=== PATIENT | male | born 1955 | race Caucasian/White ===

== ENCOUNTER 2016-09-24 07:32 | Emergency (ER) | payer OTHER ==
--- NOTE | 2016-09-24 09:22 | DIAGNOSTIC IMAGING REPORT ---
PROCEDURE: CT ABD/PELVIS WITH CONTRAST CLINICAL INDICATION: ABDOMINAL PAIN TECHNIQUE: 145 ml of Isovue 300 were injected intravenously and axial images were obtained of the entire abdomen and pelvis with sagittal and coronal reformations. COMPARISON: None. FINDINGS: ABDOMEN: Lung bases are clear. Normal heart size. Enlarged liver (20.7 cm) with diffuse steatosis. Gallbladder, pancreas, spleen and right adrenal gland are normal. 2.2 cm left adrenal mass. Bilateral renal cysts. Mild atherosclerosis. Nonspecific bowel gas pattern. PELVIS: Normal appendix. Moderate sigmoid diverticulosis with wall thickening and inflammatory change around the mid sigmoid and trace free fluid, consistent with a diverticulitis. No evidence of an abscess or free air. Enlarged prostate (5.2 cm). Normal bladder. Moderate degenerative changes. Bilateral L5 spondylolysis with grade 1 L4-5 retrolisthesis and L5-S1 anterolisthesis. IMPRESSION: 1. Sigmoid diverticulitis. No abscess. 2. Hepatomegaly and steatosis 3. 2.2 cm left adrenal mass. Recommend follow-up CT scan in 6 months 4. Bilateral L5 spondylolysis 5. Results discussed with Dr. Alexandra. All CT scans at this facility use dose modulation, iterative reconstruction, and/or weight-based dosing when appropriate to reduce radiation dose to as low as reasonably achievable.
--- NOTE | 2016-09-24 10:11 | DIAGNOSTIC IMAGING REPORT ---
PROCEDURE: XR CHEST 1 VIEW INDICATION: PALPITATIONS TECHNIQUE: Portable AP view 08:09 a.m. COMPARISON: None. FINDINGS: Lungs are clear. Heart and mediastinum are normal. Thorax is normal. IMPRESSION: 1. Negative chest.
--- NOTE | 2016-09-24 10:24 | ED NURSING NOTES ---
Clinical Report - Nurses [address] [place] [address] 09/24/2016 7:34 [id number] Triage time 0732. Acuity: LEVEL 3. Chief Complaint: CHEST PAIN and DISCOMFORT and (Chest discomfort and rapid HR onset at 0200 today, nausea, SOB.). SEPSIS SCREEN: Sepsis Screen. Negative (no infection suspected/documented). AZIZA COMA SCORE: [place] Coma Scale: 15- eyes open spontaneously (4); best verbal response- oriented x 4 (5); best motor response- obeys commands (6). --07:46 Samuel Leach R.N. 07:35 09/24/16. BP: 159/81 (regular adult cuff) taken on the left arm, while lying. HR: 117 (irregular). RR: 20. O2 saturation: 100%. Temp: 97.8 F (oral). Pain level now: 0/10. --07:46 Samuel Leach R.N. Weight: 90.7 kg stated. Height/Length: 73 inches Per Patient. BMI: 26.4. --07:45 Samuel Leach R.N. Medications Sildenafil Citrate Oral. --07:42 Samuel Leach R.N. Aspirin Oral. --09:03 Samuel Leach R.N. Atenolol Oral (Tablet 100 mg) 1 tablet, daily. --09:27 Samuel Leach R.N. Ibuprofen Oral (Tablet 800 mg) 1 tablet, 3x a day as needed. --09:27 Samuel Leach R.N. Meclizine HCl Oral (Tablet Chewable 25 mg) 1 tablet, 3x a day as needed. --09:27 Samuel Leach R.N. The following entry was struck by Samuel Leach R.N., 09:26 (09/24/16) Reason - other. <<STRICKEN ENTRY-- HTN med?. --07:43 Simbeck, Samuel, R.N. --END STRIKE>>. Allergies NKA. --07:42 Samuel Leach R.N. History Arrived by private vehicle. Historian: patient and family (speaks only austrian, son interpreting). Accompanied by family. Primary physician (Elenita). ( Pt reports drinking some energy drinks yesterday). SOCIAL HX: Former smoker, end date 1996 (cigarette). No alcohol use or drug use. ABUSE ASSESSMENT: No report of abuse. --07:46 Samuel Leach R.N. PROBLEMS: Contusion. Hypertension. --07:43 Samuel Leach R.N. Unknown Paralysis (2010). --09:04 Samuel Leach R.N. ADDITIONAL SURGERIES: Hernia Repair. --07:43 Samuel Leach R.N. Assessment GENERAL / NEURO / PSYCH: Alert. Oriented X 4. Appears anxious. RESPIRATORY: Respirations not labored. Chest nontender. Breath sounds within normal limits. CVS: Cardiac rhythm: atrial fibrillation. Capillary refill less than 2 seconds. GI / : Abdomen soft. Abdominal tenderness (now c/o 'bladder pain'). SKIN: Mucous membranes are pink. Skin is warm and dry. --07:48 Samuel Leach R.N. Interventions ID band on patient. To treatment room. --07:46 Samuel Leach R.N. PHYSICAL ASSESSMENT late entry -07:32. Ambulatory to room. GENERAL / NEURO / PSYCH: Alert. Oriented X 4. Appears anxious. HEENT: Mucous membranes are pink. RESPIRATORY: Respirations not labored. Chest nontender. Breath sounds within normal limits. CVS: Cardiac rhythm: atrial fibrillation. Pulses within normal limits. ( no edema). Pulses: (peripheral pulses match apical HR and irregularity). Capillary refill less than 2 seconds. GI / : Abdomen soft. ( 'bladder pain'). EXTREMITIES: No lower extremity edema. SKIN: Skin is warm and dry. Normal skin turgor. Skin is non-tender. --08:17 Samuel Leach R.N. NURSING PROGRESS NOTES EKG time: (740). EKG was ordered, performed by a tech and shown to the ED physician. --08:03 Luc Weiner, PATRICK Tech1 07:34 09/24/2016 Site #1 started via IV in the left forearm with an 20g angiocath; one attempt. Saline lock flushed with 10 mL saline (by Malathi, SUKUMAR). --08:04 Samuel Leach R.N. late entry -07:35. court monitor, pulse oximeter and NIBP monitor placed on patient; awake overnight monitor- Lead II and V1; monitor alarms on. Patient gowned. Head of bed elevated. Two patient identifiers checked. Call light placed in reach. Bed placed in lowest position. Brakes of bed on. Patient ready for evaluation- chart flagged. --08:18 Samuel Leach R.N. EKG time: (826). EKG was performed by a tech and shown to the ED physician. ( Second EKG performed per RN Verbal Order). --08:26 Luc Weiner, ER Tech1 late entry -08:08. Cardiac rhythm: normal sinus rhythm; (Pt's rhythm converted spontaneously). --08:28 Samuel Leach R.N. ( Nutrition Program Instructor line was used by the doctor to interview pt.). --08:28 Samuel Leach R.N. <<STRICKEN ENTRY-- 08:32 09/24/16. BP: 118/86. HR: 93. RR: 16. O2 saturation: 98% on room air. Temp: 98.2 F (oral). Pain level now: 0/10. --08:36 Samuel Leach R.N. --END STRIKE>> Charted on wrong patient. --08:37 Samuel Leach R.N. <<STRICKEN ENTRY-- Head of bed elevated. ( No c/o, visiting with a male visitor, calm, pleasant.). Call light placed in reach. Bed placed in lowest position. Brakes of bed on. --08:36 Samuel Leach R.N. --END STRIKE>> Charted On Wrong Patient --08:36 Samuel Leach R.N. 08:30 09/24/16. BP: 131/90. HR: 71 (regular). RR: 19. O2 saturation: 98% on room air. Laureano-Crowley pain scale: 4/10. --08:55 Samuel Leach R.N. 08:45 09/24/16. BP: 142/91. HR: 69 (regular). RR: 23. O2 saturation: 99% on room air. Laureano-Crowley pain scale: 08/09. --08:55 Samuel Leach R.N. Patient returned from CT by stretcher with tech. ([id number]). --09:03 Samuel Leach R.N. 09:00 09/24/16. BP: 148/93. HR: 65. RR: 19. O2 saturation: 99% on room air. Laureano-Crowley pain scale: 08/09. --09:38 Samuel Leach R.N. 09:15 09/24/16. BP: 143/90. HR: 65 (regular). RR: 18. O2 saturation: 99% on room air. Laureano-Crowley pain scale: 08/09. --09:39 Samuel Leach R.N. 09:30 09/24/16. BP: 141/89 (regular adult cuff) taken on the left arm, while sitting. HR: 64 (regular). RR: 19. O2 saturation: 99%. Laureano-Crowley pain scale: 08/09. --10:02 Samuel Leach R.N. Cardiac rhythm: normal sinus rhythm. court monitor, pulse oximeter and NIBP monitor placed on patient; awake overnight monitor- Lead II and V1; monitor alarms on. Head of bed elevated. Reassurance given. ( Pt resting quietly, no c/o, his son is at the bedside.). Call light placed in reach. Bed placed in lowest position. Brakes of bed on. --10:02 Samuel Leach R.N. 10:00 09/24/16. BP: 151/89. HR: 65 (regular). RR: 18. O2 saturation: 100% on room air. Laureano-Crowley pain scale: 08/09. --10:10 Samuel Leach R.N. 10:15 09/24/2016 Levofloxacin PO Capsules 500 mg given. Allergies verified and confirmed 5 rights. --10:21 Samuel Leach R.N. 10:20 09/24/2016 Started 500 mg of Flagyl (MetroNIDAZOLE in NaCl) IVPB in bag #1 100 mL; at 100 mL/hr over 1 hour(s) via site #1 via IV pump. Allergies verified and confirmed 5 rights. IV patency established. IV site checked: no pain, redness, or swelling. IV flushed thoroughly pre- and post-medication administration. --10:21 Samuel Leach R.N. 10:30 09/24/16. BP: 166/84. HR: 66. RR: 17. O2 saturation: 100% on room air. Laureano-Crowley pain scale: 10. --10:50 Samuel Leach R.N. 11:20 09/24/2016 Flagyl IVPB Discontinued: bag #1 completed. Total amount infused: 100 mL. IV patency established. IV site checked: no pain, redness, or swelling. IV flushed thoroughly. --11:22 Samuel Leach R.N. DISPOSITION / DISCHARGE 11:20 09/24/2016 Site #1 removed upon discharge. Bandage applied. --11:27 Samuel Leach R.N. Departure time: 1125. Condition at departure: improved and stable. Ability to learn limited by language barrier; teaching performed via svp chief marketing officer service and family member interpreting. Discharge instructions provided and reviewed with the patient and family. Reviewed medication(s). Reviewed referrals. Family verbalized understanding. Written instructions provided in Latvian. The patient was discharged by the physician. He was discharged home and accompanied by manager highway. He left the Emergency Department ambulatory and via private vehicle. --11:28 Samuel Leach R.N. 11:15 09/24/16. BP: 161/93. HR: 67. RR: 18. O2 saturation: 100% on room air. Temp: 97.9 F. Laureano-Crowley pain scale: 08/09. --11:28 Samuel Leach R.N. Locked/Released at 09/24/2016 14:47 by Samuel Leach R.N.
--- NOTE | 2016-09-24 10:24 | ED CLINICAL REPORT ---
Clinical Report - Physicians/Mid Levels [facility] [address] [place] [address] 09/24/2016 7:34 Patient: JUAN PRECIADO Time Seen: 08:03. Arrived- By private vehicle. Historian- patient, using an shuttlecock feather trimmer via language phone. HISTORY OF PRESENT ILLNESS Chief Complaint: PALPITATIONS and CHEST DISCOMFORT. It is described as a fast heart beat. He complains of dizziness and weakness. This started about 2 days ago and is still present. No history of caffeine use prior to onset, decongestants use prior to onset, cocaine use prior to onset or amphetamine use prior to onset. It was gradual in onset and has been waxing/waning. The patient has had moderate, dull central chest pain (since 2 days ago), currently gone, described as radiating to the back. He has had difficulty breathing and dizziness. No fainting episodes. ( he did drink a MicroTransponder energy drink yesterday). Similar symptoms previously: None. Recent medical care: Not recently seen/assessed. REVIEW OF SYSTEMS No calf pain, pedal edema, vomiting or hematuria. He has had moderate abdominal pain (radiating to the groin). The pain is described as located in the right lower quadrant and suprapubic region. He has had constipation and nausea. All systems otherwise negative, except as recorded above. PAST HISTORY PCP = Zoran Contusion. Hypertension. Unknown Paralysis (2010). SURGERIES: Hernia Repair. Medications: Meclizine HCl Oral (Tablet Chewable 25 mg) 1 tablet, 3x a day as needed. Ibuprofen Oral (Tablet 800 mg) 1 tablet, 3x a day as needed. Atenolol Oral (Tablet 100 mg) 1 tablet, daily. Aspirin Oral. Sildenafil Citrate Oral. Allergies: NKA. SOCIAL HISTORY Smoker- current status unknown. No alcohol use or drug use. FAMILY HISTORY Premature onset heart disease with early in first-degree relative (father). ADDITIONAL NOTES The nursing notes have been reviewed. PHYSICAL EXAM Vital Signs: 09/24/2016 07:35 BP: 159/81. HR: 117. RR: 20. O2 saturation: 100%. Temp: 97.8 F. Pain level now: 0/10. Have been reviewed. Appearance: Alert. Eyes: Pupils equal, round and reactive to light. ENT: Pharynx normal. Neck: Normal inspection. Neck supple. No JVD. CVS: Tachycardia. Abnormal rhythm, which is irregularly irregular. Respiratory: No respiratory distress. Breath sounds normal. Abdomen: Soft and nontender. Bowel sounds normal. No organomegaly. No mass. Back: Normal external inspection. Skin: Skin warm and dry. Normal skin color. Normal skin turgor. Extremities: Extremities exhibit normal ROM. No calf tenderness. No lower extremity edema. LABS, X-RAYS, AND EKG EKG: EKG time: (7:41 AM). Rate: 103. Atrial fibrillation. Q waves in lead aVL, V1 and V2. Prior EKG unavailable. The study has been independently viewed by me. EKG #2: EKG time: (8:27 AM). Normal sinus rhythm. Rate: 68. Q waves in lead aVL, V1 and V2. Changes present when compared to prior EKG. The study has been independently viewed by me. Chest X-ray: No acute disease. The X-rays were independently viewed by me. Abdominal CT: 1. Sigmoid diverticulitis. No abscess. 2. Hepatomegaly and steatosis 3. 2.2 cm left adrenal mass. Recommend follow-up CT scan in 6 months 4. Bilateral L5 spondylolysis. Study type: abdomen and pelvis. Abdominal CT performed with IV contrast. The study was independently viewed by me, interpreted by the radiologist and discussed with the radiologist. Prior studies were not available for comparison. Interpretation time: 09:45. Laboratory Tests: UA-Culture if indicated: (AGUSTINA: 09/24/2016 08:45) ( MsgRcvd 09/24/2016 09:03) IP Test Result Flag Units (Reference) URINE COLOR YELLOW URINE APPEARANCE CLEAR URINE GLUCOSE 1+ (NEGATIVE) URINE BILIRUBIN NEGATIVE (NEGATIVE) URINE KETONE NEGATIVE (NEGATIVE) URINE SPECIFIC GRAVITY >= 1.030 (1.010-1.030) URINE PH 6.0 (5.0-8.0) URINE PROTEIN NEGATIVE (NEGATIVE) URINE UROBILINOGEN 0.2 EU/dL (0.2-1.0) URINE NITRITE NEGATIVE (NEGATIVE) URINE BLOOD NEGATIVE (NEGATIVE) URINE LEUK ESTERASE NEGATIVE (NEGATIVE) CBC w Diff: (AGUSTINA: 09/24/2016 07:55) ( [facility] 09/24/2016 08:10) Final results Test Result Flag Units (Reference) WHITE BLOOD COUNT 12.5 H K/uL (4.5-11.5) RED BLOOD COUNT 4.41 L M/uL (4.50-5.90) HEMOGLOBIN 13.5 gm/dL (13.5-17.5) HEMATOCRIT 40.0 L % (41.0-53.0) MEAN CELL VOLUME 91 fL (80-100) MEAN CORPUSCULAR HGB 31 pg (26-34) MEAN CORPUSCULAR HGB CONC 34 g/dL (31-37) RED CELL DISTRIBUTION WIDTH 13.0 % (11.6-14.8) PLATELET COUNT 226 K/uL (150-400) NEUTROPHIL % 64.4 % (50-75) LYMPH % 21.5 L % (25-40) MONO % 12.1 % (3-14) EOSINOPHIL % 1.7 % (0-4) BASOPHIL % 0.3 % (0-2) [id number]: (AGUSTINA: 09/24/2016 07:55) ( [facility] 09/24/2016 08:29) Final results Test Result Flag Units (Reference) D-DIMER QUANTITATIVE 0.34 ug/mLFEU (0.27-0.52) The primary value of this quantitative assay relates toits negative predictive value (i.e. exclusion) of pulmonaryembolism/deep vein thrombosis/DIC.Elevated levels of d-dimer may also occur with:, age, cancer, inflammation, liver disease,post-op, infection, hematoma, coronary disease, peripheralarteriopathy, bleeding disorders and thrombolytic treatment.Results should be correlated with other clinical andradiological data.Testing Methodology: Latex Immunoassay PT with INR: (AGUSTINA: 09/24/2016 07:55) ( [facility] 09/24/2016 08:17) Final results Test Result Flag Units (Reference) INR 0.9 (0.8-1.2) Low Intensity Therapy: INR 1.5-2.0 PT range 18.5-23.1Mod.Intensity Therapy: INR 2.0-3.0 PT range 23.1-31.5High Intensity Therapy: INR 2.5-3.5 PT range 27.4-35.5High Intensity Therapy 2: INR 3.0-4.0 PT range 31.5-39.3 APTT 31 SECONDS (24-34) CMP: (AGUSTINA: 09/24/2016 07:55) ( MsgRcvd 09/24/2016 08:28) Final results Test Result Flag Units (Reference) GLUCOSE 206 H mg/dL (70-110) BUN 20 H mg/dL (7-18) CREATININE 0.8 mg/dL (0.6-1.3) Estimated GFR >60 mL/min Estimated GFR- >60 mL/min Note: Persistent reduction over 3 months in eGFR<60 mL/min/1.73 m2 defines CKD. Patients with eGFR values>=60 mL/min/1.73 m2 may also have CKD if evidence ofpersistent proteinuria. Additional information may be foundat www.kidney.org. SODIUM 140 mmol/L (136-145) POTASSIUM 3.4 L mmol/L (3.5-5.1) CHLORIDE 105 mmol/L (98-107) CARBON DIOXIDE 24 mmol/L (21-32) CALCIUM 8.4 L mg/dL (8.5-10.1) TOTAL PROTEIN 7.5 g/dL (6.4-8.2) ALBUMIN 3.3 g/dL (3.3-5.0) BILIRUBIN, TOTAL 0.5 mg/dL (0.0-1.0) ALKALINE PHOSPHATASE 85 U/L (46-116) AST (SGOT) 16 U/L (15-37) ALT (SGPT) 34 U/L (12-78) LIPASE 190 U/L (73-393) AMYLASE 37 U/L (25-115) CPK 244 U/L (24-260) TROPONIN I <0.05 L ng/mL (0.00-1.5) TROPONIN REFERENCE RANGE:<0.1 NEGATIVE0.1-1.5 INDETERMINANT>1.5 POSITIVE THYROID STIMULATING HORMONE 1.014 uIU/mL (0.30-3.74) . PROGRESS AND PROCEDURES Course of Care: 09:13 09/24/16. I reviewed the case with Dr. Alexandra at change of shift. We reviewed the patient's history and physical examination findings as well as the results of his EKG chest x-ray and labs. Dr. Alexandra will follow up on the results of his pending CT abdomen and pelvis and will arrange an appropriate disposition for the patient. - MW Case accepted from Dr. Gómez. H&P reviewed and confirmed by me personally. Discussed case with on-call health care provider, (call returned 10:05 Dr. Len Nur cardiology, [place] for outpt stress and echo. Also, low dose beta negin and anticoag due to CHADDS VASC2 score of 2.). Reviewed test results and need for additional work-up. Health care provider will see patient in office. Consult obtained. Patient/family counseled. Disposition: Discharged home in good condition. Condition: good. CLINICAL IMPRESSION ,paroxysmal atrial fibrillation. The patient has one or more high risk factors and/or two or more moderate risk factors for thromboembolism. The patient is prescribed warfarin or another FDA approved anticoagulant. Acute diverticulitis of the colon. No perforation, bleeding, abscess, peritonitis or obstruction. New onset type 2 diabetes with hyperglycemia. No coma. INSTRUCTIONS Prescription Medications: Metformin 500 mg: take 1 orally every 12 hours. Dispense thirty (30). No refills. Flagyl 500 mg: Take 1 tablet orally every 12 hours for 7 days. No refill. Substitution is permissible Levaquin 500 mg: take 1 tab orally every day for 6 days. No refills. Substitution is permissible. (start on 09/25/16) Xarelto 20 mg 1 PO q day Disp # 30 No refills. Follow-up: Follow up with your doctor in about three days. Call for an appointment. Follow up with doctor Dr. Nur at [facility] [phone] in about four days. Call for an appointment. Blood pressure screening was not performed during this visit because the patient has an active diagnosis of hypertension. (Electronically signed by Sal Alexandra Dr. 09/24/2016 14:09) Addenda for JUAN PRECIADO VisitID: [id number] Date: 09/24/2016 09/24/2016 12:14 [facility] pharmacy called, and stated that the Xarelto is not covered by insurance, [facility], Dr. Alexandra notified, and will review chart. (Electronically signed by Michelle Jenkins R.N. - 09/24/2016 12:14)
--- NOTE | 2016-09-24 10:24 | ED CLINICAL REPORT ---
Clinical Report - Physicians/Mid Levels [facility] [address] [place] [address] 09/24/2016 7:34 Patient: JUAN PRECIADO Time Seen: 08:03. Arrived- By private vehicle. Historian- patient, using an healthcare interpreter via language phone. HISTORY OF PRESENT ILLNESS Chief Complaint: PALPITATIONS and CHEST DISCOMFORT. It is described as a fast heart beat. He complains of dizziness and weakness. This started about 2 days ago and is still present. No history of caffeine use prior to onset, decongestants use prior to onset, cocaine use prior to onset or amphetamine use prior to onset. It was gradual in onset and has been waxing/waning. The patient has had moderate, dull central chest pain (since 2 days ago), currently gone, described as radiating to the back. He has had difficulty breathing and dizziness. No fainting episodes. ( he did drink a [employer] energy drink yesterday). Similar symptoms previously: None. Recent medical care: Not recently seen/assessed. REVIEW OF SYSTEMS No calf pain, pedal edema, vomiting or hematuria. He has had moderate abdominal pain (radiating to the groin). The pain is described as located in the right lower quadrant and suprapubic region. He has had constipation and nausea. All systems otherwise negative, except as recorded above. PAST HISTORY PCP = Zoran Contusion. Hypertension. Unknown Paralysis (2010). SURGERIES: Hernia Repair. Medications: Meclizine HCl Oral (Tablet Chewable 25 mg) 1 tablet, 3x a day as needed. Ibuprofen Oral (Tablet 800 mg) 1 tablet, 3x a day as needed. Atenolol Oral (Tablet 100 mg) 1 tablet, daily. Aspirin Oral. Sildenafil Citrate Oral. Allergies: NKA. SOCIAL HISTORY Smoker- current status unknown. No alcohol use or drug use. FAMILY HISTORY Premature onset heart disease with early in first-degree relative (father). ADDITIONAL NOTES The nursing notes have been reviewed. PHYSICAL EXAM Vital Signs: 09/24/2016 07:35 BP: 159/81. HR: 117. RR: 20. O2 saturation: 100%. Temp: 97.8 F. Pain level now: 0/10. Have been reviewed. Appearance: Alert. Eyes: Pupils equal, round and reactive to light. ENT: Pharynx normal. Neck: Normal inspection. Neck supple. No JVD. CVS: Tachycardia. Abnormal rhythm, which is irregularly irregular. Respiratory: No respiratory distress. Breath sounds normal. Abdomen: Soft and nontender. Bowel sounds normal. No organomegaly. No mass. Back: Normal external inspection. Skin: Skin warm and dry. Normal skin color. Normal skin turgor. Extremities: Extremities exhibit normal ROM. No calf tenderness. No lower extremity edema. LABS, X-RAYS, AND EKG EKG: EKG time: (7:41 AM). Rate: 103. Atrial fibrillation. Q waves in lead aVL, V1 and V2. Prior EKG unavailable. The study has been independently viewed by me. EKG #2: EKG time: (8:27 AM). Normal sinus rhythm. Rate: 68. Q waves in lead aVL, V1 and V2. Changes present when compared to prior EKG. The study has been independently viewed by me. Chest X-ray: No acute disease. The X-rays were independently viewed by me. Abdominal CT: 1. Sigmoid diverticulitis. No abscess. 2. Hepatomegaly and steatosis 3. 2.2 cm left adrenal mass. Recommend follow-up CT scan in 6 months 4. Bilateral L5 spondylolysis. Study type: abdomen and pelvis. Abdominal CT performed with IV contrast. The study was independently viewed by me, interpreted by the radiologist and discussed with the radiologist. Prior studies were not available for comparison. Interpretation time: 09:45. Laboratory Tests: UA-Culture if indicated: (AGUSTINA: 09/24/2016 08:45) ( MsgRcvd 09/24/2016 09:03) IP Test Result Flag Units (Reference) URINE COLOR YELLOW URINE APPEARANCE CLEAR URINE GLUCOSE 1+ (NEGATIVE) URINE BILIRUBIN NEGATIVE (NEGATIVE) URINE KETONE NEGATIVE (NEGATIVE) URINE SPECIFIC GRAVITY >= 1.030 (1.010-1.030) URINE PH 6.0 (5.0-8.0) URINE PROTEIN NEGATIVE (NEGATIVE) URINE UROBILINOGEN 0.2 EU/dL (0.2-1.0) URINE NITRITE NEGATIVE (NEGATIVE) URINE BLOOD NEGATIVE (NEGATIVE) URINE LEUK ESTERASE NEGATIVE (NEGATIVE) CBC w Diff: (AGUSTINA: 09/24/2016 07:55) ( [facility] 09/24/2016 08:10) Final results Test Result Flag Units (Reference) WHITE BLOOD COUNT 12.5 H K/uL (4.5-11.5) RED BLOOD COUNT 4.41 L M/uL (4.50-5.90) HEMOGLOBIN 13.5 gm/dL (13.5-17.5) HEMATOCRIT 40.0 L % (41.0-53.0) MEAN CELL VOLUME 91 fL (80-100) MEAN CORPUSCULAR HGB 31 pg (26-34) MEAN CORPUSCULAR HGB CONC 34 g/dL (31-37) RED CELL DISTRIBUTION WIDTH 13.0 % (11.6-14.8) PLATELET COUNT 226 K/uL (150-400) NEUTROPHIL % 64.4 % (50-75) LYMPH % 21.5 L % (25-40) MONO % 12.1 % (3-14) EOSINOPHIL % 1.7 % (0-4) BASOPHIL % 0.3 % (0-2) [id number]: (AGUSTINA: 09/24/2016 07:55) ( [facility] 09/24/2016 08:29) Final results Test Result Flag Units (Reference) D-DIMER QUANTITATIVE 0.34 ug/mLFEU (0.27-0.52) The primary value of this quantitative assay relates toits negative predictive value (i.e. exclusion) of pulmonaryembolism/deep vein thrombosis/DIC.Elevated levels of d-dimer may also occur with:, age, cancer, inflammation, liver disease,post-op, infection, hematoma, coronary disease, peripheralarteriopathy, bleeding disorders and thrombolytic treatment.Results should be correlated with other clinical andradiological data.Testing Methodology: Latex Immunoassay PT with INR: (AGUSTINA: 09/24/2016 07:55) ( [facility] 09/24/2016 08:17) Final results Test Result Flag Units (Reference) INR 0.9 (0.8-1.2) Low Intensity Therapy: INR 1.5-2.0 PT range 18.5-23.1Mod.Intensity Therapy: INR 2.0-3.0 PT range 23.1-31.5High Intensity Therapy: INR 2.5-3.5 PT range 27.4-35.5High Intensity Therapy 2: INR 3.0-4.0 PT range 31.5-39.3 APTT 31 SECONDS (24-34) CMP: (AGUSTINA: 09/24/2016 07:55) ( MsgRcvd 09/24/2016 08:28) Final results Test Result Flag Units (Reference) GLUCOSE 206 H mg/dL (70-110) BUN 20 H mg/dL (7-18) CREATININE 0.8 mg/dL (0.6-1.3) Estimated GFR >60 mL/min Estimated GFR- >60 mL/min Note: Persistent reduction over 3 months in eGFR<60 mL/min/1.73 m2 defines CKD. Patients with eGFR values>=60 mL/min/1.73 m2 may also have CKD if evidence ofpersistent proteinuria. Additional information may be foundat [email or web address].org. SODIUM 140 mmol/L (136-145) POTASSIUM 3.4 L mmol/L (3.5-5.1) CHLORIDE 105 mmol/L (98-107) CARBON DIOXIDE 24 mmol/L (21-32) CALCIUM 8.4 L mg/dL (8.5-10.1) TOTAL PROTEIN 7.5 g/dL (6.4-8.2) ALBUMIN 3.3 g/dL (3.3-5.0) BILIRUBIN, TOTAL 0.5 mg/dL (0.0-1.0) ALKALINE PHOSPHATASE 85 U/L (46-116) AST (SGOT) 16 U/L (15-37) ALT (SGPT) 34 U/L (12-78) LIPASE 190 U/L (73-393) AMYLASE 37 U/L (25-115) CPK 244 U/L (24-260) TROPONIN I <0.05 L ng/mL (0.00-1.5) TROPONIN REFERENCE RANGE:<0.1 NEGATIVE0.1-1.5 INDETERMINANT>1.5 POSITIVE THYROID STIMULATING HORMONE 1.014 uIU/mL (0.30-3.74) . PROGRESS AND PROCEDURES Course of Care: 09:13 09/24/16. I reviewed the case with Dr. Alexandra at change of shift. We reviewed the patient's history and physical examination findings as well as the results of his EKG chest x-ray and labs. Dr. Alexandra will follow up on the results of his pending CT abdomen and pelvis and will arrange an appropriate disposition for the patient. - MW Case accepted from Dr. Gómez. H&P reviewed and confirmed by me personally. Discussed case with on-call health care provider, (call returned 10:05 Dr. Len Nur cardiology, [place] for outpt stress and echo. Also, low dose beta negin and anticoag due to CHADDS VASC2 score of 2.). Reviewed test results and need for additional work-up. Health care provider will see patient in office. Consult obtained. Patient/family counseled. Disposition: Discharged home in good condition. Condition: good. CLINICAL IMPRESSION ,paroxysmal atrial fibrillation. The patient has one or more high risk factors and/or two or more moderate risk factors for thromboembolism. The patient is prescribed warfarin or another FDA approved anticoagulant. Acute diverticulitis of the colon. No perforation, bleeding, abscess, peritonitis or obstruction. New onset type 2 diabetes with hyperglycemia. No coma. INSTRUCTIONS Prescription Medications: Metformin 500 mg: take 1 orally every 12 hours. Dispense thirty (30). No refills. Flagyl 500 mg: Take 1 tablet orally every 12 hours for 7 days. No refill. Substitution is permissible Levaquin 500 mg: take 1 tab orally every day for 6 days. No refills. Substitution is permissible. (start on 09/25/16) Xarelto 20 mg 1 PO q day Disp # 30 No refills. Follow-up: Follow up with your doctor in about three days. Call for an appointment. Follow up with doctor Dr. Nur at [facility] [phone] in about four days. Call for an appointment. Blood pressure screening was not performed during this visit because the patient has an active diagnosis of hypertension. (Electronically signed by Sal Alexandra Dr. 09/24/2016 14:09) Addenda for JUAN PRECIADO VisitID: [id number] Date: 09/24/2016 09/24/2016 12:14 [facility] pharmacy called, and stated that the Xarelto is not covered by insurance, [facility], Dr. Alexandra notified, and will review chart. (Electronically signed by Michelle Jenkins R.N. - 09/24/2016 12:14)
--- NOTE | 2016-09-24 10:24 | ED NURSING NOTES ---
Clinical Report - Nurses [place] [address] [place] [address] 09/24/2016 7:34 [id number] Triage time 0732. Acuity: LEVEL 3. Chief Complaint: CHEST PAIN and DISCOMFORT and (Chest discomfort and rapid HR onset at 0200 today, nausea, SOB.). SEPSIS SCREEN: Sepsis Screen. Negative (no infection suspected/documented). AZIZA COMA SCORE: Melbeta Coma Scale: 15- eyes open spontaneously (4); best verbal response- oriented x 4 (5); best motor response- obeys commands (6). --07:46 Samuel Leach R.N. 07:35 09/24/16. BP: 159/81 (regular adult cuff) taken on the left arm, while lying. HR: 117 (irregular). RR: 20. O2 saturation: 100%. Temp: 97.8 F (oral). Pain level now: 0/10. --07:46 Samuel Leach R.N. Weight: 90.7 kg stated. Height/Length: 73 inches Per Patient. BMI: 26.4. --07:45 Samuel Leach R.N. Medications Sildenafil Citrate Oral. --07:42 Samuel Leach R.N. Aspirin Oral. --09:03 Samuel Leach R.N. Atenolol Oral (Tablet 100 mg) 1 tablet, daily. --09:27 Samuel Leach R.N. Ibuprofen Oral (Tablet 800 mg) 1 tablet, 3x a day as needed. --09:27 Samuel Leach R.N. Meclizine HCl Oral (Tablet Chewable 25 mg) 1 tablet, 3x a day as needed. --09:27 Samuel Leach R.N. The following entry was struck by Samuel Leach R.N., 09:26 (09/24/16) Reason - other. <<STRICKEN ENTRY-- HTN med?. --07:43 Simbeck, Samuel, R.N. --END STRIKE>>. Allergies NKA. --07:42 Samuel Leach R.N. History Arrived by private vehicle. Historian: patient and family (speaks only egyptian, son interpreting). Accompanied by family. Primary physician (Elenita). ( Pt reports drinking some energy drinks yesterday). SOCIAL HX: Former smoker, end date 1996 (cigarette). No alcohol use or drug use. ABUSE ASSESSMENT: No report of abuse. --07:46 Samuel Leach R.N. PROBLEMS: Contusion. Hypertension. --07:43 Samuel Leach R.N. Unknown Paralysis (2010). --09:04 Samuel Leach R.N. ADDITIONAL SURGERIES: Hernia Repair. --07:43 Samuel Leach R.N. Assessment GENERAL / NEURO / PSYCH: Alert. Oriented X 4. Appears anxious. RESPIRATORY: Respirations not labored. Chest nontender. Breath sounds within normal limits. CVS: Cardiac rhythm: atrial fibrillation. Capillary refill less than 2 seconds. GI / : Abdomen soft. Abdominal tenderness (now c/o 'bladder pain'). SKIN: Mucous membranes are pink. Skin is warm and dry. --07:48 Samuel Leach R.N. Interventions ID band on patient. To treatment room. --07:46 Samuel Leach R.N. PHYSICAL ASSESSMENT late entry -07:32. Ambulatory to room. GENERAL / NEURO / PSYCH: Alert. Oriented X 4. Appears anxious. HEENT: Mucous membranes are pink. RESPIRATORY: Respirations not labored. Chest nontender. Breath sounds within normal limits. CVS: Cardiac rhythm: atrial fibrillation. Pulses within normal limits. ( no edema). Pulses: (peripheral pulses match apical HR and irregularity). Capillary refill less than 2 seconds. GI / : Abdomen soft. ( 'bladder pain'). EXTREMITIES: No lower extremity edema. SKIN: Skin is warm and dry. Normal skin turgor. Skin is non-tender. --08:17 Samuel Leach R.N. NURSING PROGRESS NOTES EKG time: (740). EKG was ordered, performed by a tech and shown to the ED physician. --08:03 Luc Weiner, PATRICK Tech1 07:34 09/24/2016 Site #1 started via IV in the left forearm with an 20g angiocath; one attempt. Saline lock flushed with 10 mL saline (by Malathi, SUKUMAR). --08:04 Samuel Leach R.N. late entry -07:35. enterprise application analyst, pulse oximeter and NIBP monitor placed on patient; cardiac tech- Lead II and V1; monitor alarms on. Patient gowned. Head of bed elevated. Two patient identifiers checked. Call light placed in reach. Bed placed in lowest position. Brakes of bed on. Patient ready for evaluation- chart flagged. --08:18 Samuel Leach R.N. EKG time: (826). EKG was performed by a tech and shown to the ED physician. ( Second EKG performed per RN Verbal Order). --08:26 Luc Weiner, ER Tech1 late entry -08:08. Cardiac rhythm: normal sinus rhythm; (Pt's rhythm converted spontaneously). --08:28 Samuel Leach R.N. ( Solution Developer line was used by the doctor to interview pt.). --08:28 Samuel Leach R.N. <<STRICKEN ENTRY-- 08:32 09/24/16. BP: 118/86. HR: 93. RR: 16. O2 saturation: 98% on room air. Temp: 98.2 F (oral). Pain level now: 0/10. --08:36 Samuel Leach R.N. --END STRIKE>> Charted on wrong patient. --08:37 Samuel Leach R.N. <<STRICKEN ENTRY-- Head of bed elevated. ( No c/o, visiting with a male visitor, calm, pleasant.). Call light placed in reach. Bed placed in lowest position. Brakes of bed on. --08:36 Samule Leach R.N. --END STRIKE>> Charted On Wrong Patient --08:36 Samuel Leach R.N. 08:30 09/24/16. BP: 131/90. HR: 71 (regular). RR: 19. O2 saturation: 98% on room air. Laureano-Crowley pain scale: 4/10. --08:55 Samuel Leach R.N. 08:45 09/24/16. BP: 142/91. HR: 69 (regular). RR: 23. O2 saturation: 99% on room air. Laureano-Crowley pain scale: 08/09. --08:55 Samuel Leach R.N. Patient returned from CT by stretcher with tech. ([id number]). --09:03 Samuel Leach R.N. 09:00 09/24/16. BP: 148/93. HR: 65. RR: 19. O2 saturation: 99% on room air. Laureano-Crowley pain scale: 08/09. --09:38 Samuel Leach R.N. 09:15 09/24/16. BP: 143/90. HR: 65 (regular). RR: 18. O2 saturation: 99% on room air. Laureano-Crowley pain scale: 08/09. --09:39 Samuel Leach R.N. 09:30 09/24/16. BP: 141/89 (regular adult cuff) taken on the left arm, while sitting. HR: 64 (regular). RR: 19. O2 saturation: 99%. Laureano-Crowley pain scale: 08/09. --10:02 Samuel Leach R.N. Cardiac rhythm: normal sinus rhythm. enterprise application analyst, pulse oximeter and NIBP monitor placed on patient; cardiac tech- Lead II and V1; monitor alarms on. Head of bed elevated. Reassurance given. ( Pt resting quietly, no c/o, his son is at the bedside.). Call light placed in reach. Bed placed in lowest position. Brakes of bed on. --10:02 Samuel Leach R.N. 10:00 09/24/16. BP: 151/89. HR: 65 (regular). RR: 18. O2 saturation: 100% on room air. Laureano-Crowley pain scale: 08/09. --10:10 Samuel Leach R.N. 10:15 09/24/2016 Levofloxacin PO Capsules 500 mg given. Allergies verified and confirmed 5 rights. --10:21 Samuel Leach R.N. 10:20 09/24/2016 Started 500 mg of Flagyl (MetroNIDAZOLE in NaCl) IVPB in bag #1 100 mL; at 100 mL/hr over 1 hour(s) via site #1 via IV pump. Allergies verified and confirmed 5 rights. IV patency established. IV site checked: no pain, redness, or swelling. IV flushed thoroughly pre- and post-medication administration. --10:21 Samuel Leach R.N. 10:30 09/24/16. BP: 166/84. HR: 66. RR: 17. O2 saturation: 100% on room air. Laureano-Crowley pain scale: 10. --10:50 Samuel Leach R.N. 11:20 09/24/2016 Flagyl IVPB Discontinued: bag #1 completed. Total amount infused: 100 mL. IV patency established. IV site checked: no pain, redness, or swelling. IV flushed thoroughly. --11:22 Samuel Leach R.N. DISPOSITION / DISCHARGE 11:20 09/24/2016 Site #1 removed upon discharge. Bandage applied. --11:27 Samuel Leach R.N. Departure time: 1125. Condition at departure: improved and stable. Ability to learn limited by language barrier; teaching performed via it programmer analyst service and family member interpreting. Discharge instructions provided and reviewed with the patient and family. Reviewed medication(s). Reviewed referrals. Family verbalized understanding. Written instructions provided in French. The patient was discharged by the physician. He was discharged home and accompanied by varnishing unit tool setter. He left the Emergency Department ambulatory and via private vehicle. --11:28 Samuel Leach R.N. 11:15 09/24/16. BP: 161/93. HR: 67. RR: 18. O2 saturation: 100% on room air. Temp: 97.9 F. Laureano-Crowley pain scale: 08/09. --11:28 Samuel Leach R.N. Locked/Released at 09/24/2016 14:47 by Samuel Leach R.N.
--- NOTE | 2016-09-24 10:24 | ED ORDER SUMMARY ---
..... Patient: JUAN PRECIADO [facility] VisitID: [id number] [place] [address] 61y, M Registration Date/Time: 09/24/2016 ORDER SHEET Weight: 90.7 kg (stated) Allergies: NKA GENERAL ORDERS: Chest 1V Urgent (07:54 09/24/2016 Ami IVY) (Ack 7:59 PWeiler ER Tech1) (8:19 IJurca ER Tech1) Head Trimmer (Continuous) (07:54 09/24/2016 Ami IVY) (8:04 IJurca ER Tech1) CBC w Diff Urgent (07:56 09/24/2016 Ami IVY) (Ack 7:59 PWeiler ER Tech1) (Sent 8:04 IJurca ER Tech1) (8:04 JSimbeck R.N.) CMP Urgent (07:56 09/24/2016 Ami IVY) (Ack 7:59 PWeiler ER Tech1) (Sent 8:04 IJurca ER Tech1) (8:04 JSimbeck R.N.) UA-Culture if indicated Urgent (07:56 09/24/2016 Ami IVY) (Ack 7:59 PWeiler ER Tech1) (8:52 JSimbeck R.N.) Amylase Urgent (07:56 09/24/2016 Ami IVY) (Ack 7:59 PWeiler ER Tech1) (Sent 8:04 IJurca ER Tech1) (8:04 JSimbeck R.N.) Lipase Urgent (07:56 09/24/2016 Ami IVY) (Ack 7:59 PWeiler ER Tech1) (Sent 8:04 IJurca ER Tech1) (8:04 JSimbeck R.N.) PT with INR Urgent (07:56 09/24/2016 Ami IVY) (Ack 7:59 PWeiler ER Tech1) (Sent 8:04 IJurca ER Tech1) (8:04 JSimbeck R.N.) PTT Urgent (07:56 09/24/2016 Ami IVY) (Ack 7:59 PWeiler ER Tech1) (Sent 8:04 IJurca ER Tech1) (8:04 JSimbeck R.N.) CPK Urgent (07:56 09/24/2016 Ami IVY) (Ack 7:59 PWeiler ER Tech1) (Sent 8:04 IJurca ER Tech1) (8:04 JSimbeck R.N.) Troponin-I Urgent (07:56 09/24/2016 Ami IVY) (Ack 7:59 PWeiler ER Tech1) (Sent 8:04 IJurca ER Tech1) (8:04 JSimbeck R.N.) Oxygen (2 L/min) (NC) (07:56 09/24/2016 Ami IVY) (8:04 Satnam ER Tech1) Pulse oximeter (07:56 09/24/2016 Ami IVY) (8:04 GEOFFREYurca ER Tech1) EKG - ER Stat (07:56 09/24/2016 Ami IVY) (7:57 PWeimirian ER Tech1) TSH Urgent (07:56 09/24/2016 Ami IVY) (Ack 7:59 PWeimirian ER Tech1) (Sent 8:04 IJurca ER Tech1) (8:04 JSimbeck R.N.) D-Dimer Urgent (08:18 09/24/2016 Ami IVY) (Ack 8:19 SOPHIAeimirian ER Tech1) (8:52 JSimbeck R.N.) CT Abd/Pel w Cont (No) (See report) Urgent (08:43 09/24/2016 Ami IVY) (Ack 8:44 PWeimirian ER Tech1) (9:02 JSimbeck R.N.) MEDICATION ORDERS: Levofloxacin PO 500 mg (NOW) (10:09 09/24/2016 Teddy Carolina) (10:21 JSimbeck R.N.) IV FLUIDS: IV Saline Lock (07:56 09/24/2016 Ami IVY) (8:04 JSimbeck R.N.) Flagyl IV 500 mg/100mL (NOW) (10:10 09/24/2016 Teddy Carolina) (10:21 JSimbeck R.N.) ORDER SHEET NOTES: [Electronically signed by Sal Alexandra Dr. (14:09 09/24/2016)] [Electronically signed by Samuel Leach R.N. (14:47 09/24/2016)] [Electronically locked/signed by Samuel Leach R.N. (14:47 09/24/2016)]
--- NOTE | 2016-09-24 10:24 | ED ORDER SUMMARY ---
..... Patient: JUAN PRECIADO OrderSheet [facility] VisitID: [id number] [place] [address] 61y, M Registration Date/Time: 09/24/2016 ORDER SHEET Weight: 90.7 kg (stated) Allergies: NKA GENERAL ORDERS: Chest 1V Urgent (07:54 09/24/2016 Ami IVY) (Ack 7:59 PWeiler ER Tech1) (8:19 IJurca ER Tech1) Sas Architect (Continuous) (07:54 09/24/2016 Ami IVY) (8:04 IJurca ER Tech1) CBC w Diff Urgent (07:56 09/24/2016 Ami IVY) (Ack 7:59 PWeiler ER Tech1) (Sent 8:04 IJurca ER Tech1) (8:04 JSimbeck R.N.) CMP Urgent (07:56 09/24/2016 Ami IVY) (Ack 7:59 PWeiler ER Tech1) (Sent 8:04 IJurca ER Tech1) (8:04 JSimbeck R.N.) UA-Culture if indicated Urgent (07:56 09/24/2016 Ami IVY) (Ack 7:59 PWeiler ER Tech1) (8:52 JSimbeck R.N.) Amylase Urgent (07:56 09/24/2016 Ami IVY) (Ack 7:59 PWeiler ER Tech1) (Sent 8:04 IJurca ER Tech1) (8:04 JSimbeck R.N.) Lipase Urgent (07:56 09/24/2016 Ami IVY) (Ack 7:59 PWeiler ER Tech1) (Sent 8:04 IJurca ER Tech1) (8:04 JSimbeck R.N.) PT with INR Urgent (07:56 09/24/2016 Ami IVY) (Ack 7:59 PWeiler ER Tech1) (Sent 8:04 IJurca ER Tech1) (8:04 JSimbeck R.N.) PTT Urgent (07:56 09/24/2016 Ami IVY) (Ack 7:59 PWeiler ER Tech1) (Sent 8:04 IJurca ER Tech1) (8:04 JSimbeck R.N.) CPK Urgent (07:56 09/24/2016 Ami IVY) (Ack 7:59 PWeiler ER Tech1) (Sent 8:04 IJurca ER Tech1) (8:04 JSimbeck R.N.) Troponin-I Urgent (07:56 09/24/2016 Ami IVY) (Ack 7:59 PWeiler ER Tech1) (Sent 8:04 IJurca ER Tech1) (8:04 JSimbeck R.N.) Oxygen (2 L/min) (NC) (07:56 09/24/2016 Ami IVY) (8:04 Satnam ER Tech1) Pulse oximeter (07:56 09/24/2016 Ami IVY) (8:04 GEOFFREYurca ER Tech1) EKG - ER Stat (07:56 09/24/2016 Ami IVY) (7:57 PWeimirian ER Tech1) TSH Urgent (07:56 09/24/2016 Ami IVY) (Ack 7:59 PWeimirian ER Tech1) (Sent 8:04 IJurca ER Tech1) (8:04 JSimbeck R.N.) D-Dimer Urgent (08:18 09/24/2016 Ami IVY) (Ack 8:19 SOPHIAeimirian ER Tech1) (8:52 JSimbeck R.N.) CT Abd/Pel w Cont (No) (See report) Urgent (08:43 09/24/2016 Ami IVY) (Ack 8:44 PWeimirian ER Tech1) (9:02 JSimbeck R.N.) MEDICATION ORDERS: Levofloxacin PO 500 mg (NOW) (10:09 09/24/2016 Teddy Carolina) (10:21 JSimbeck R.N.) IV FLUIDS: IV Saline Lock (07:56 09/24/2016 Ami IVY) (8:04 JSimbeck R.N.) Flagyl IV 500 mg/100mL (NOW) (10:10 09/24/2016 Teddy Carolina) (10:21 JSimbeck R.N.) ORDER SHEET NOTES: [Electronically signed by aSl Alexandra Dr. (14:09 09/24/2016)] [Electronically signed by Samuel Leach R.N. (14:47 09/24/2016)] [Electronically locked/signed by Samuel Leach R.N. (14:47 09/24/2016)]
--- NOTE | 2016-09-24 14:48 | ED MED RECONCILIATION SUMMARY ---
Patient: JUAN PRECIADO Medication Reconciliation Report VisitID: [id number] [place] [address] 61y, M Registration Date/Time: 09/24/2016 Weight: 90.7 kg Height/Length: 73 in. BMI: 26.4 ALLERGIES: NKA The patient's Home Medications are listed below: THE FOLLOWING MEDICATIONS NEED TO BE RECONCILED: Aspirin Oral Atenolol Oral (100 mg) 1 tablet, daily Ibuprofen Oral (800 mg) 1 tablet, 3x a day Meclizine HCl Oral (25 mg) 1 tablet, 3x a day Sildenafil Citrate Oral The source(s) of the original Home Medication information: Not obtained. The following Medications were given to the patient in the Emergency Department: Levofloxacin [PO] PO 500 mg, administered: 09/24/2016 10:15:00 AM Flagyl [IVPB] IVPB bolus 0, then 500 mg 100 mL/hr, administered: 09/24/2016 10:20:00 AM The following Medications were prescribed to the patient: Metformin 500 mg: take 1 orally every 12 hours. Dispense thirty (30). No refills. -- Sal Alexandra Dr. Xarelto 20 mg1 PO q dayDisp # 30No refills. -- Sal Alexandra Dr. Flagyl 500 mg: Take 1 tablet orally every 12 hours for 7 days. No refill. Substitution is permissible -- Sal Alexandra Dr. Levaquin 500 mg: take 1 tab orally every day for 6 days. No refills. Substitution is permissible.(start on 09/25/16) -- Sal Alexandra Dr.
--- NOTE | 2016-09-24 14:48 | ED MAR SUMMARY ---
..... Medication Administration Record [facility] [address] [place] [address] Patient: JUAN PRECIADO Visit ID: [id number] 61y, M Weight: 90.7 kg Height/Length: 73 in BMI: 26.4 ALLERGIES: NKA Given 10:15 09/24/2016 Samuel Leach R.N. Medication Administered: LEVOFLOXACIN [PO], Dose: 500 mg Capsules PO. Medication Ordered: Levofloxacin PO 500 mg (NOW). Start 10:20 09/24/2016 Samuel Leach R.N., Stop 11:20 09/24/2016 Samuel Leach R.N. Medication Administered: FLAGYL [IVPB] (METRONIDAZOLE IN NACL), Dose: 500 mg IVPB over 1 hour(s), Rate: 100 mL/hr, Dispensed: 100 mL bag, Site: #1 left forearm. Medication Ordered: Flagyl IV 500 mg/100mL (NOW).
--- NOTE | 2016-09-24 14:48 | ED MED RECONCILIATION SUMMARY ---
Patient: JUAN PRECIADO Medication Reconciliation Report [facility] VisitID: [id number] [place] [address] 61y, M Registration Date/Time: 09/24/2016 Weight: 90.7 kg Height/Length: 73 in. BMI: 26.4 ALLERGIES: NKA The patient's Home Medications are listed below: THE FOLLOWING MEDICATIONS NEED TO BE RECONCILED: Aspirin Oral Atenolol Oral (100 mg) 1 tablet, daily Ibuprofen Oral (800 mg) 1 tablet, 3x a day Meclizine HCl Oral (25 mg) 1 tablet, 3x a day Sildenafil Citrate Oral The source(s) of the original Home Medication information: Not obtained. The following Medications were given to the patient in the Emergency Department: Levofloxacin [PO] PO 500 mg, administered: 09/24/2016 10:15:00 AM Flagyl [IVPB] IVPB bolus 0, then 500 mg 100 mL/hr, administered: 09/24/2016 10:20:00 AM The following Medications were prescribed to the patient: Metformin 500 mg: take 1 orally every 12 hours. Dispense thirty (30). No refills. -- Sal Alexandra Dr. Xarelto 20 mg1 PO q dayDisp # 30No refills. -- Sal Alexandra Dr. Flagyl 500 mg: Take 1 tablet orally every 12 hours for 7 days. No refill. Substitution is permissible -- Sal Alexandra Dr. Levaquin 500 mg: take 1 tab orally every day for 6 days. No refills. Substitution is permissible.(start on 09/25/16) -- Sal Alexandra Dr.
--- NOTE | 2016-09-24 14:48 | ED MAR SUMMARY ---
..... Medication Administration Record [facility] [address] [place] [address] Patient: JUAN PRECIADO Visit ID: [id number] 61y, M Weight: 90.7 kg Height/Length: 73 in BMI: 26.4 ALLERGIES: NKA Given 10:15 09/24/2016 Samuel Leach R.N. Medication Administered: LEVOFLOXACIN [PO], Dose: 500 mg Capsules PO. Medication Ordered: Levofloxacin PO 500 mg (NOW). Start 10:20 09/24/2016 Samuel Leach R.N., Stop 11:20 09/24/2016 Samuel Leach R.N. Medication Administered: FLAGYL [IVPB] (METRONIDAZOLE IN NACL), Dose: 500 mg IVPB over 1 hour(s), Rate: 100 mL/hr, Dispensed: 100 mL bag, Site: #1 left forearm. Medication Ordered: Flagyl IV 500 mg/100mL (NOW).
--- NOTE | 2016-09-24 14:48 | ED DISCHARGE INSTRUCTIONS ---
Patient: JUAN PRECIADO General Instructions [facility] VisitID: [id number] [place] [address] 61y, M Registration Date/Time: 09/24/2016 ,paroxysmal atrial fibrillation. The patient has one or more high risk factors and/or two or more moderate risk factors for thromboembolism. The patient is prescribed warfarin or another FDA approved anticoagulant. Acute diverticulitis of the colon. No perforation, bleeding, abscess, peritonitis or obstruction. New onset type 2 diabetes with hyperglycemia. No coma. INSTRUCTIONS Prescription Medications: Metformin 500 mg: take 1 orally every 12 hours. Dispense thirty (30). No refills. Flagyl 500 mg: Take 1 tablet orally every 12 hours for 7 days. No refill. Substitution is permissible Levaquin 500 mg: take 1 tab orally every day for 6 days. No refills. Substitution is permissible. (start on 09/25/16) Xarelto 20 mg 1 PO q day Disp # 30 No refills. Follow-up: Follow up with your doctor in about three days. Call for an appointment. Follow up with doctor Dr. Nur at [facility] [phone] in about four days. Call for an appointment. Blood pressure screening was not performed during this visit because the patient has an active diagnosis of hypertension. ADDITIONAL INFORMATION Arrhythmia Electrical impulses cause the normal heart to beat 60 to 100 times a minute. These impulses come from a natural pacemaker deep inside the heart muscle. Each impulse causes the heart muscle to contract. This causes the blood to flow through the heart and out to the tissues and organs of your body. An arrhythmia is a change from the normal speed or pattern of these electrical impulses. This can cause the heart to beat too fast (tachycardia); or too slow (bradycardia); or in an unsteady pattern (irregular rhythm). Symptoms of arrhythmias Different people experience arrhythmias differently. Sometimes they may not have symptoms, but just notice a change in their pulse. Symptoms can include: Fluttering feeling in the chest Shortness of breath Chest pain or pressure Lightheadedness or dizziness Fainting or nearly fainting Palpitations Tiredness, fatigue, or weakness Causes of arrhythmias Arrhythmias are most often due to heart disease such as: Coronary artery disease (arteriosclerosis) Disease of the heart valves Enlarged heart High blood pressure Heart failure Other causes ofarrhythmia include: Certain medicines (such as asthma inhalers and decongestants) Some herbal supplements Cardiac stimulant drugs (such as cocaine, amphetamine, diet pills, certain decongestant cold medicines, caffeine, and nicotine) Excessive alcohol use Medical conditions such as thyroid disease, anemia, anxiety, and panic disorder Arrythmias can often be prevented. The cause and type of arrhythmia determines the best treatment. Sometimes your doctor may want to monitor your heart rate over a 24-hour period or longer. This can help identify the cause of your arrhythmia and find the best treatment. This can be done with a Holter monitor,a portable EKG recording device attached by wires to your chest. You can carry this with you as you perform your routine activities during the monitoring period. Home care Avoid cardiac stimulants (such as cocaine, amphetamine, diet pills, certain decongestant cold medicines, caffeine, and nicotine). If you smoke, stop smoking. Contact your doctor or a local stop-smoking program for help. Tell your doctor about any prescription, [id number]-[id number] or herbal medicines you take. These may be affecting your heart rhythm. Follow-up care Follow up with your health care provider or as advised by our staff. If a Holter monitor has been recommended, contact the cardiologistyou have been referred toas soon as you canpick up the device. Other outpatient tests may also be arranged for you at that time. Call 911 This is the fastest and safest way to get to the emergency department. The paramedics can also start treatment on the way to the hospital, if needed. Don'twait until your symptoms are severe to call 911. Other reasons to call 911 besides chest pain include: Chest, shoulder, arm, neck, or back pain Shortness of breath Feeling lightheaded, faint, or dizzy Rapid heart beat Slower than usual heart rate compared to your normal Angina withweakness, dizziness, fainting, heavy sweating, nausea, or vomiting Extreme drowsiness, or confusion Weakness of an arm or leg or one side of the face Difficulty with speech or vision When to seek medical care Remember, things are not always like they are on TV. Sometimes it is not so obvious. You may only feel weak or just "not right." If it is not clear or if you have any doubt, call for advice. Seek help for chest pain, or it feels different from usual, even if your symptoms are mild. Do not drive yourself. Have someone else drive. If no one can drive you, call 911. If your doctor has given you medicines to take when you have symptoms, take them, but do not delay getting help while trying to find them. Do not delay. Fast diagnosis and treatment can prevent or limit the amount of heart damage during a heart attack or stroke. Do not go to your doctor's ofice or a clinic because they will not be able to provide all of the testing or treatment required for this condition. Diabetes (General Information) Cells of the body need glucose (sugar) for fuel. Insulin is the hormone in the body that lets glucose move from the blood into the cells. Diabetes is a chronic health condition where the body is not able to produce enough insulin, or does not respond well to its own insulin. Because the glucose in the blood cannot get into the cells, it builds up in the blood causing high blood sugar (hyperglycemia). Your actual blood sugar level is a result of the balance between several factors. These include what kind of food you eat and how much of it you eat, how much exercise you get, and the amount of insulin present in your body. Eating too much of the wrong kinds of food or not taking diabetes medicine on time can cause high blood sugar. Infections can cause high blood sugar even if you are taking medicines correctly. Missing meals, not eating enough food, or taking too much diabetes medicine can lead to low blood sugar. Untreated over long periods of time, diabetes can cause serious problems such as heart disease, stroke, kidney failure, blindness, nerve pain or loss of feeling in the legs and feet, and gangrene of the feet. With good treatment keeping your blood sugar under control, you can prevent or delay the complications of diabetes. Normal blood sugar levels are 70-130 one to two hours before a meal and not more than 180 two hours after a meal. Home Care: Follow your prescribed diabetic diet and take insulin or oral diabetic medicine exactly as ordered. Monitor blood sugars as advised. Keep a log of your results. This will help your doctor adjust your medicines to keep your blood sugar under control. Try to achieve your ideal weight. Proper diet and exercise can reduce or eliminate the need to take diabetes medicine. Avoid tobacco smoking, which worsens the effect of diabetes on your circulation. The risk of a heart attack in a diabetic is 15 times more likely if you smoke. Pay attention to good foot care. If you have lost feeling in your feet you may not notice an injury or infection. Check your feet and between your toes at least once a week. Wear a medical alert bracelet or carry a card in your wallet explaining that you are diabetic. In the event that you become very ill and are unable to give this information, it will help medical personnel provide proper care. If you become sick with a cold, the flu, or an infection (viral or bacterial), please do the following: Review your diabetes sick plan and contact your physician as instructed. You may have been advised to call the doctor immediately if: Your blood sugar is above 240 while taking your diabetes medication Your urine ketone levels are above normal or showing high levels of ketones You have been vomiting more than 6 hours You experience difficulty to trouble breathing You develop a high fever or you have had a fever for a couple of days and you aren't getting better You become light-headed and more sleepy than usual Keep taking your oral diabetes medicine (pills) even if you have been vomiting and feeling sick. Contact your doctor immediately for advice because you may need insulin to lower your blood sugar until you recover from your illness. Keep taking your insulin, even if you have been vomiting and feeling sick. Call your doctor immediately and ask if a temporary adjustment of your insulin dose is needed based on your blood glucose (sugar) results. Check your blood sugar every 2 to 4 hours, or at least 4 times a day. Check your keytones often. If you are vomiting and having diarrhea, monitor them more frequently. Don't skip meals. Try to eat small meals on a regular schedule, even if you do not have an appetite. Drink water or other calorie-free, non-caffeinated liquids to stay hydrated. If you are nauseated or vomiting, drink small amounts (sips, a teaspoon) every 5 minutes. To prevent dehydration, try to drink a cup or 8 ounces of fluids every hour while you are awake. Always carry a source of fast-acting sugar with you in case you get symptoms of low blood sugar (below 70). At the first sign of low blood sugar, eat or drink 15 to 20 grams of fast-acting sugar to raise your blood sugar. Examples include: 3 to 4 glucose tablets (found at most drugstores) 4 ounces (1/2 cup) of regular (not diet) softdrinks 4 ounces (1/2 cup) of any fruit juice 8 ounces (1 cup) of milk 5 to 6 pieces of hard candy 1 tablespoon of honey Check your blood sugar 15 minutes after treating yourself. If it is still low (below 70), take another 15 to 20 grams of fast-acting sugar. Test again in 15 minutes. If it returns to normal (70 or above), eat a snack or meal to keep your blood sugar in a safe range. If it remains low, call your doctor or go to an emergency room. Follow Up with your doctor as advised by our staff. For more information, contact the [employer] [employer]. www.diabetes.org or 556-965-3032. Get Prompt Medical Attention if any of the following occur: HIGH BLOOD SUGAR: frequent urination, dizziness, drowsiness, thirst, headache, nausea or vomiting, abdominal pain, vision changes, fast breathing, confusion or loss of consciousness LOW BLOOD SUGAR: fatigue, headache, shakes, excess sweating, hunger, feeling anxious or restless, vision changes, drowsiness, weakness, confusion or loss of consciousness Chest pain or shortness of breath Dizziness or fainting Weakness of an arm or leg or one side of the face Trouble with speech or vision Diverticulitis Some people develop pouches along the wall of the colon as they get older. The pouches,called diverticuli, usually cause no symptoms. If the pouches become blocked, an infection may occur known as diverticulitis. This causes lower abdominal pain and fever. If not treated, it can become a serious condition, causing an abscess to form inside the pouch. The abscess may block the instestinal tract even or rupture, spreading infection throughout the abdomen. When treatment is started early, oral antibiotics alone may be enough to cure diverticulitis. This method is tried first. However, if you do not improve or if your condition worsens while you are trying oral antibiotics, it will be necessary to admit you to the hospital for IV antibiotics. Severe cases may require surgery. Home care The following guidelines will help you care for your diverticulitis at home: During the acute illness, rest and follow a low-fiber diet: Foods to Include: flake cereal, mashed potatoes, pancakes, waffles, pasta, white bread, rice, applesauce, bananas, eggs, meat, fish, poultry, tofu, cooked vegetables. Take antibiotics exactly as directed. Do not miss any doses or stop taking the medication, even if you feel better. Monitor your temperature and report any rising temperature to your doctor. Preventing future attacks Once you have had an episode of diverticulitis, you are at risk of having a recurrence. After you have recovered from this episode, you may be able to reduce your risk by eating a high-fiber diet (2035 gm/day of fiber). This cleans out the colon pouches that already exist and prevent new ones from forming. Foods high in fiber includes fresh fruits and edible peelings, raw or lightly cooked vegetables, whole grain cereals and breads, dried beans and peas, bran. Follow-up care Follow up with your doctor as advised or sooner if you are not improving in the nexttwo days. When to seek medical care Get prompt medical attention if any of the following occur: Fever of 100.4F (38C) or higher, or as directed by your health care provider Repeated vomiting or swelling of the abdomen Weakness, dizziness, light-headedness Increasing abdominal pain that becomes severe or spreads to your back Pain that moves to the right lower abdomen Rectal bleeding (red, black or maroon color of the stools) Unexpected vaginal bleeding Metronidazole Oral tablet What is this medicine? METRONIDAZOLE ( troe NI da zole) is an antiinfective. It is used to treat certain kinds of bacterial and protozoal infections. It will not work for colds, flu, or other viral infections. How should I use this medicine? Take this medicine by mouth with a full glass of water. Follow the directions on the prescription label. Take your medicine at regular intervals. Do not take your medicine more often than directed. Take all of your medicine as directed even if you think you are better. Do not skip doses or stop your medicine early. Talk to your chemical laboratory technician regarding the use of this medicine in children. Special care may be needed. What side effects may I notice from receiving this medicine? Side effects that you should report to your doctor or health vision care associate as soon as possible: allergic reactions like skin rash or hives, swelling of the face, lips, or tongue confusion, clumsiness difficulty speaking discolored or sore mouth dizziness fever, infection numbness, tingling, pain or weakness in the hands or feet trouble passing urine or change in the amount of urine redness, blistering, peeling or loosening of the skin, including inside the mouth seizures unusually weak or tired vaginal irritation, dryness, or discharge Side effects that usually do not require medical attention (report to your doctor or health vision care associate if they continue or are bothersome): diarrhea headache irritability metallic taste nausea stomach pain or cramps trouble sleeping What may interact with this medicine? Do not take this medicine with any of the following medications: alcohol or any product that contains alcohol amprenavir oral solution cisapride disulfiram dofetilide dronedarone paclitaxel injection pimozide ritonavir oral solution sertraline oral solution sulfamethoxazole-trimethoprim injection thioridazine ziprasidone This medicine may also interact with the following medications: cimetidine lithium other medicines that prolong the QT interval (cause an abnormal heart rhythm) phenobarbital phenytoin warfarin What if I miss a dose? If you miss a dose, take it as soon as you can. If it is almost time for your next dose, take only that dose. Do not take double or extra doses. Where should I keep my medicine? Keep out of the reach of children. Store at room temperature below 25 degrees C (77 degrees F). Protect from light. Keep container tightly closed. Throw away any unused medicine after the expiration date. What should I tell my health care provider before I take this medicine? They need to know if you have any of these conditions: anemia or other blood disorders disease of the nervous system fungal or yeast infection if you drink alcohol containing drinks liver disease seizures an unusual or allergic reaction to metronidazole, or other medicines, foods, dyes, or preservatives or trying to get breast-feeding What should I watch for while using this medicine? Tell your doctor or health vision care associate if your symptoms do not improve or if they get worse. You may get drowsy or dizzy. Do not drive, use machinery, or do anything that needs mental alertness until you know how this medicine affects you. Do not stand or sit up quickly, especially if you are an older patient. This reduces the risk of dizzy or fainting spells. Avoid alcoholic drinks while you are taking this medicine and for three days afterward. Alcohol may make you feel dizzy, sick, or flushed. If you are being treated for a sexually transmitted disease, avoid sexual contact until you have finished your treatment. Your sexual partner may also need treatment. Levofloxacin Oral tablet What is this medicine? LEVOFLOXACIN (noemi soria DAGOBERTO anders dos santos) is a quinolone antibiotic. It is used to treat certain kinds of bacterial infections. It will not work for colds, flu, or other viral infections. How should I use this medicine? Take this medicine by mouth with a full glass of water. Follow the directions on the prescription label. This medicine can be taken with or without food. Take your medicine at regular intervals. Do not take your medicine more often than directed. Do not skip doses or stop your medicine early even if you feel better. Do not stop taking except on your doctor's advice. A special MedGuide will be given to you by the pharmacist with each prescription and refill. Be sure to read this information carefully each time. Talk to your chemical laboratory technician regarding the use of this medicine in children. While this drug may be prescribed for children as young as 6 months for selected conditions, precautions do apply. What side effects may I notice from receiving this medicine? Side effects that you should report to your doctor or health vision care associate as soon as possible: -allergic reactions like skin rash or hives, swelling of the face, lips, or tongue -changes in vision -confusion, nightmares or hallucinations -difficulty breathing -irregular heartbeat, chest pain -joint, muscle or tendon pain -pain or difficulty passing urine -persistent headache with or without blurred vision -redness, blistering, peeling or loosening of the skin, including inside the mouth -seizures -unusual pain, numbness, tingling, or weakness -vaginal irritation, discharge Side effects that usually do not require medical attention (report to your doctor or health vision care associate if they continue or are bothersome): -diarrhea -dry mouth -headache -stomach upset, nausea -trouble sleeping What may interact with this medicine? Do not take this medicine with any of the following medications: - arsenic trioxide - chloroquine - droperidol - medicines for irregular heart rhythm like amiodarone, disopyramide, dofetilide, flecainide, quinidine, procainamide, sotalol - some medicines for depression or mental problems like phenothiazines, pimozide, and ziprasidone This medicine may also interact with the following medications: - amoxapine -antacids - cisapride - dairy products - didanosine (ddI) buffered tablets or powder - haloperidol - multivitamins -NSAIDS, medicines for pain and inflammation, like ibuprofen or naproxen - retinoid products like tretinoin or isotretinoin - risperidone - some other antibiotics like clarithromycin or erythromycin - sucralfate - theophylline - warfarin What if I miss a dose? If you miss a dose, take it as soon as you remember. If it is almost time for your next dose, take only that dose. Do not take double or extra doses. Where should I keep my medicine? Keep out of the reach of children. Store at room temperature between 15 and 30 degrees C (59 and 86 degrees F). Keep in a tightly closed container. Throw away any unused medicine after the expiration date. What should I tell my health care provider before I take this medicine? They need to know if you have any of these conditions: cerebral disease irregular heartbeat kidney disease seizure disorder an unusual or allergic reaction to levofloxacin, other antibiotics or medicines, foods, dyes, or preservatives or trying to get breast-feeding What should I watch for while using this medicine? Tell your doctor or health vision care associate if your symptoms do not improve or if they get worse. Drink several glasses of water a day and cut down on drinks that contain caffeine. You must not get dehydrated while taking this medicine. You may get drowsy or dizzy. Do not drive, use machinery, or do anything that needs mental alertness until you know how this medicine affects you. Do not sit or stand up quickly, especially if you are an older patient. This reduces the risk of dizzy or fainting spells. This medicine can make you more sensitive to the sun. Keep out of the sun. If you cannot avoid being in the sun, wear protective clothing and use a sunscreen. Do not use sun lamps or tanning beds/booths. Contact your doctor if you get a sunburn. If you are a diabetic monitor your blood glucose carefully. If you get an unusual reading stop taking this medicine and call your doctor right away. Do not treat diarrhea with lerv-uoz-oquyuas products. Contact your doctor if you have diarrhea that lasts more than 2 days or if the diarrhea is severe and watery. Avoid antacids, calcium, iron, and zinc products for 2 hours before and 2 hours after taking a dose of this medicine. You have been given the following additional information: Arrhythmia, Unspecified Diabetes, General Info Diverticulitis Metronidazole Oral tablet Levofloxacin Oral tablet (Electronically signed by Sal Alexandra Dr. 09/24/2016 14:09)
== END 2016-09-24 11:25 | disposition home or self-care (01) ==
LOC: ED SRH 07:32
DX: I48.0 Paroxysmal atrial fibrillation (principal); K57.32 Diverticulitis of large intestine without perforation or abscess without bleeding; E11.65 Type 2 diabetes mellitus with hyperglycemia; I10 Essential (primary) hypertension; Z79.899 Other long term (current) drug therapy; Z79.82 Long term (current) use of aspirin
CPT/HCPCS: 90004; 90074; 90100; 90616; 91556; 92235; 92530; 92610; 93140; 94001; 94060; 95059